=== PATIENT | male | born 1995 | race Caucasian/White ===

== ENCOUNTER 2021-09-02 13:30 | Emergency (ER) | payer OTHER, SELFPAY ==
[2021-09-02 13:43] VITALS: BP 133/71; PULSE 66; RESP 18; TEMP 36.7; O2SAT 99
--- NOTE | 2021-09-05 14:31 | ED.SKABFB ---
HPI - Skin/Abscess/Foreign Bdy General Chief complaint: Skin/Abscess/Foreign Body Stated complaint: rash Time Seen by Provider: 09/02/21 14:00 Source: patient Mode of arrival: ambulatory Limitations: no limitations History of Present Illness HPI narrative: 26 yo M presents with c/o poison jennifer rash for 6 days. Started 1 day after fishing. Reports hx of similar reaction to poison jennifer. Has rash to L arm, L trunk and L leg. Applying OTC steroid cream without relief. No other complaints today. All systems reviewed and negative except as noted above. Related Data Allergies Allergy/AdvReac Type Severity Reaction Status Date / Time poison jennifer extract Allergy Rash Verified 09/02/21 13:49 Review of Systems Review of Systems: CONSTITUTIONAL: Denies fever, chills, or sweats. EYES: Denies visual changes, redness, or discharge. ENT: Denies rhinorrhea, congestion, sore throat, or otalgia. CARDIOVASCULAR: Denies chest pain, palpitations, or edema. RESPIRATORY: Denies cough or dyspnea. GASTROINTESTINAL: Denies abdominal pain, nausea, vomiting, or diarrhea. GENITOURINARY: Denies dysuria or hematuria. SKIN: Reports poison jennifer rash with itching. MUSCULOSKELETAL: Denies back pain, joint pain, or myalgia. NEUROLOGIC: Denies headache, numbness, or weakness. PSYCHIATRIC: Denies anxiety or depression. All other systems reviewed are negative, except as documented in HPI. PMFSH Comments At time of signature, agree with nursing past medical, surgical, social and family history. There is no relevant family history pertinent to the presenting complaint. Exam Narrative: GENERAL: This is a well-nourished, well-developed patient, in no apparent distress. HEAD: normocephalic, atraumatic. EYES: PERRL. Sclera clear/white. Vision is grossly intact. EARS: External ears normal NOSE: External nose normal NECK: Neck supple, non-tender without lymphadenopathy, masses or thyromegaly. CARDIOVASCULAR: Regular rate and rhythm without murmurs, gallops, or rubs. RESPIRATORY: Clear to auscultation. Breath sounds equal bilaterally. No wheezes, rales, or rhonchi. SKIN: warm, Dry, intact with good texture and turgor. Erythematous vesicular rash to left forearm, entire left leg, left side of trunk. Weeping in some areas. No signs of infection. NEURO: awake, alert, and oriented to person, place and time. There were no obvious focal neurologic abnormalities. EXTREMITIES: No joint tenderness, effusion, or edema noted. Course Course Level of Care: Express Care Visit Vital Signs Vital signs: Vital Signs Temperature 36.7 C 09/02/21 13:43 Pulse Rate 66 09/02/21 13:43 Respiratory Rate 18 09/02/21 13:43 Blood Pressure 133/71 09/02/21 13:43 Pulse Oximetry 99 09/02/21 13:43 Oxygen Delivery Room Air 09/02/21 13:43 Temperature 36.7 C 09/02/21 13:43 Pulse Rate 66 09/02/21 13:43 Respiratory Rate 18 09/02/21 13:43 Blood Pressure 133/71 09/02/21 13:43 Pulse Oximetry 99 09/02/21 13:43 Oxygen Delivery Room Air 09/02/21 13:43 Reviewed MDM - Skin/Abscess/Foreign Bdy MDM Narrative Medical decision making narrative: Patient is aware of diagnosis, understands and agrees to treatment plan. Anticipatory guidance given. Patient agrees to follow-up as directed and is aware of reasons to seek care at the emergency department. Portions of this record may have been created with voice recognition software Discharge Plan Discharge Clinical Impression: Dermatitis due to plants, including poison jennifer, sumac, and oak Patient Disposition: Home, Self-Care Condition: Stable Instructions: Poison Jennifer (ED) Additional Instructions: Take medications as prescribed. May take Tylenol or ibuprofen if you are experiencing pain. Follow-up with your primary care physician if rash is not improving. Prescriptions: New prednisone 20 mg tablet See Rx Instructions .ROUTE .COMPLEX Qty: 14 0RF Rx Instructions: Take 3 tablets fo
== END 2021-09-02 14:02 | disposition home or self-care (01) ==
PROVIDERS: Emergency Provider Nurse Practitioner Family
DX: L25.5 Unspecified contact dermatitis due to plants, except food (principal)
CPT/HCPCS: 99213; G0463